=== PATIENT | female | born 1970 | race American Indian/Alaskan Native ===

== ENCOUNTER 2020-10-06 11:27 | Outpatient (CLI) | payer BC ==
--- NOTE | 2020-10-06 12:56 | Mammography Report ---
DIGITAL SCREENING MAMMOGRAM WITH CAD, 10/06/2020 CLINICAL INFORMATION / INDICATION: Routine screening mammography. TECHNIQUE: Digital bilateral 2D mammography was obtained in the craniocaudal and mediolateral obliqu e projections. This examination was interpreted with the benefit of Computer-Aided Detection analysis . COMPARISON: This is the patient's first mammogram. FINDINGS: Breast Density: There are scattered areas of fibroglandular density. No dominant mass, suspicious calcifications, or architectural distortion in either breast. Postreduction mammoplasty. IMPRESSION: No mammographic evidence of malignancy. Follow up recommendation: Routine yearly BI-RADS Category 2: Benign. A "normal" or negative report should not discourage follow up or biopsy of a clinically significant f inding. A written summary of these findings will be mailed to the patient. The patient will be entered into a mammography reporting system which will generate a reminder letter for the patient's next appointmen t at the appropriate interval. The [employer] recommends yearly mammograms starting at age 40 and continuing as l [place] as a woman is in good health. Breast MRI is recommended for women with an approximate 20-25% or greater lifetime risk of breast cancer, including women with a strong family history of breast or ova mary cancer or who have been treated for Hodgkin's disease. Signer Name: Margaret Chen MD Signed: 10/06/2020 12:52 PM Workstation Name: [id number]
== END 2020-10-06 11:28 | disposition home or self-care (01) ==
LOC: MAMMO 11:27
PROVIDERS: ATTEND Internal Medicine
DX: Z12.31 Encounter for screening mammogram for malignant neoplasm of breast (principal)
CPT/HCPCS: 77067

== ENCOUNTER 2020-10-27 10:46 | Outpatient (CLI) | payer BC ==
[2020-10-27 11:35] LABS: Hematocrit 39.2 % (30.3-42.9); Hemoglobin 12.5 gm/dl (10.1-14.3); Mean Corpuscular HGB Conc 32 % (30-34); Mean Corpuscular Volume 80 fl (79-97); Platelet Count 362 K/mm3 (140-440); Red Cell Distribution Width 16.9 % (13.2-15.2)
[2020-10-27 11:46] LABS: Alanine Aminotransferase 13 units/L (7-56); Albumin 4.2 g/dL (3.9-5); Blood Urea Nitrogen 14 mg/dL (7-17); Calcium 9.5 mg/dL (8.4-10.2); Chol/HDL Ratio 2.07 %; HDL Cholesterol 81 mg/dL (40-59); Hemolysis Index 1; LDL Cholesterol,Direct 85 mg/dL (50-130)
[2020-10-27 11:53] LABS: BUN/Creatinine Ratio 20
[2020-10-27 11:58] LABS: Free T4 (Free Thyroxine) 1.04 ng/dL (0.76-1.46)
== END 2020-10-27 10:47 | disposition home or self-care (01) ==
LOC: LAB 10:46
PROVIDERS: ATTEND Obstetrics & Gynecology
DX: Z13.1 Encounter for screening for diabetes mellitus (principal); Z13.220 Encounter for screening for lipoid disorders; Z13.21 Encounter for screening for nutritional disorder; Z13.0 Encounter for screening for diseases of the blood and blood-forming organs and certain disorders involving the immune mechanism; R10.2 Pelvic and perineal pain; Z13.29 Encounter for screening for other suspected endocrine disorder
CPT/HCPCS: 36415; 80053; 80061; 82306; 83036; 84439; 84443; 85027

== ENCOUNTER 2021-02-24 10:34 | Day surgery (SDC) | payer SELFPAY ==
--- NOTE | 2021-02-24 11:55 | Anesthesia Day of Surgery ---
Anesthesia Day of Surgery - Day of Surgery Patient Examined: Yes Patient H&P Reviewed: Yes Patient is NPO: Yes
--- NOTE | 2021-02-24 11:55 | Anesthesia Consultation ---
Anesthesia Consult and Med Hx Date of service: 02/24/21 - Airway Anesthetic Teeth Evaluation: Good ROM Head & Neck: Adequate Mental/Hyoid Distance: Adequate Mallampati Class: Class III Intubation Access Assessment: Possibly Difficult - Pre-Operative Health Status ASA Pre-Surgery Classification: ASA2 Proposed Anesthetic Plan: MAC - Pulmonary Hx Smoking: Yes Hx Respiratory Symptoms: No - Cardiovascular System Hx Hypertension: No - Central Nervous System CVA: No - Endocrine Hx Renal Disease: No Hx Liver Disease: No Hx Insulin Dependent Diabetes: No Hx Non-Insulin Dependent Diabetes: No Hx Thyroid Disease: No
--- NOTE | 2021-02-24 12:24 | Short Stay Summary ---
Short Stay Documentation Date of service: 02/24/21 Narrative H&P: The patient presents for her first screening colonoscopy. Average risk profile. - History Past Medical History: No medical history Past Surgical History: , hysterectomy, Other (Breast surgery 1998) Social history: no significant social history - Allergies and Medications Current Medications: Allergies codeine Allergy (Verified 06/19/18 13:50) Unknown Home Medications Medication Instructions Recorded Confirmed Last Taken Type Multivit-Min/Iron/Folic/Vov610 1 each PO DAILY 06/19/18 06/19/18 Unknown History [Hair, Skin and Nails Tablet] Multivitamin [Multiple Vitamins] 1 each PO DAILY 06/19/18 06/19/18 Unknown History Ketorolac [Toradol] 10 mg PO Q6H PRN #12 tablet 06/20/18 Unknown Rx oxyCODONE /ACETAMINOPHEN [Percocet 1 tab PO Q6H PRN #12 tablet 06/20/18 Unknown Rx 5/325 mg] - Physical exam General appearance: no acute distress, well-nourished Integumentary: no rash, no growths, no abnormal pigmentation HEENT: Atraumatic, PERRLA, EOMI, Mucous membr. moist/pink Lungs: Clear to auscultation, Normal air movement Breasts: deferred Heart: Regular rate, Normal S1, Normal S2, No murmurs Gastrointestinal: normoactive bowel sounds, no tenderness, no distended, no masses, no organomegaly, no obese Female Genitourinary: deferred Rectal Exam: normal exam-external/orifice, normal rectal tone, no tenderness, no hemorrhoids, no mass Extremities: no ischemia, pulses intact, pulses symmetrical, No edema, normal temperature, normal color, Full ROM Neurological: Normal gait, Normal speech, Strength at 5/5 X4 ext, Normal tone, Sensation intact, Cranial nerves 3-12 NL - Brief post op/procedure progress note Date of procedure: 02/24/21 Findings: see dictation Estimated blood loss: none Pathology: none Condition: stable - Disposition Condition at discharge: Good Disposition: DC-01 TO HOME OR SELFCARE - Discharge Diagnoses (1) Colon cancer screening Status: Acute Short Stay Discharge Plan Activity: other (no driving for 24 hours.) Weight Bearing Status: Weight Bear as Tolerated Diet: regular Follow up with: YASMINE BHATT MD [Primary Care Provider] - 7 Days
--- NOTE | 2021-02-24 12:25 | Operative Report ---
Operative Report Operative Report: Date of procedure: 02/24/2021 Preprocedure diagnosis: Colon cancer screening. No prior studies. Average risk profile. Post procedure diagnosis: Scattered left colon diverticula otherwise normal. Procedure: Colonoscopy to the cecum Endoscopist: Dr. Will Anesthesia: Monitored anesthesia care per anesthesia department Estimated blood loss: 0 Medications: Monitored anesthesia care. See separate report by anesthesia for details. After careful discussion of the nature and purpose of the procedure as well as details of the technique risks benefits and alternatives the patient gave consent. Please see recent history and physical from the office. The patient was placed in the left lateral decubitus position and medicated per anesthesia. A rectal exam was performed sphincter tone was normal there were no masses palpable. The [employer] 570 scope was passed transanally and advanced under continuous direct vision without difficulty to the cecum. The colon was well prepared. The cecum was normal. The ascending colon was normal and on forward and retroflexed views. The transverse colon was normal. There were a few scattered diverticula in the descending colon and sigmoid colon. The rectum was normal on forward and retroflexed views. The procedure was well-tolerated overall and the patient was observed in recovery. Conclusions: Mild left colon diverticulosis, otherwise normal. Plan: Repeat colonoscopy in 10 years, sooner if clinically indicated. Signed electronically: Denis Will M.D.
[2021-02-24 13:07] VITALS: BP 123/80
--- NOTE | 2021-02-24 15:49 | Post Anesthesia Evaluation ---
- Post Anesthesia Evaluation Patient Participated: Yes Airway Patent: Yes Stable Respiratory Function: Yes Nausea/Vomiting: No Temp > 96.8F: Yes Pain Manageable: Yes Adequeate Hydration: Yes Anesthesia Complications: No
== END 2021-02-24 13:25 | disposition home or self-care (01) ==
LOC: GIO 10:34
PROVIDERS: ATTEND Internal Medicine Gastroenterology
DX: R10.32 Left lower quadrant pain (principal); K59.04 Chronic idiopathic constipation; K57.30 Diverticulosis of large intestine without perforation or abscess without bleeding; K63.89 Other specified diseases of intestine; F17.210 Nicotine dependence, cigarettes, uncomplicated; Z90.710 Acquired absence of both cervix and uterus; Z98.890 Other specified postprocedural states; Z79.899 Other long term (current) drug therapy